=== PATIENT | male | born 1965 | race American Indian/Alaskan Native ===

== ENCOUNTER 2017-03-16 10:45 | Day surgery (SDC) | payer MEDICARE, OTHER ==
[2017-03-16 11:18] VITALS: BMI 33.0
[2017-03-16 11:29] LABS: BASO # 0.02 K/mm3 (0.0-2.0); BASO % 0.4 % (0.0-3.0); EOS # 0.2 (0.0-0.7); EOS % 3.7 % (1.5-5.0); GRAN # 3.45 (1.4-6.5); GRAN % 60.6 % (50.0-68.0); HEMOGLOBIN 12.9 g/dL (14.0-18.0); LYMPH # 1.6 (1.2-3.4); LYMPH % 27.6 % (22.0-35.0); MEAN CORPUSCULAR HEMOGLOBIN 27.6 pg (25.0-35.0); MEAN CORPUSCULAR HGB CONC 31.7 g/dl (31.0-37.0); MEAN PLATELET VOLUME 11.4 fl (7.0-11.0); MONO # 0.4 (0.1-0.6); MONO % 7.7 % (1.0-6.0); RBC 4.68 10^6/uL (3.5-6.1); RED CELL DISTRIBUTION WIDTH 15.8 % (11.5-14.5); WHITE BLOOD COUNT 5.7 10^3/ul (4.5-11.0)
[2017-03-16 11:41] LABS: INR 1.05 (0.93-1.08); PARTIAL THROMBOPLASTIN TIME 31.1 Seconds (25.1-36.5); PROTHROMBIN TIME 12.2 SECONDS (9.4-12.5)
[2017-03-16 11:56] LABS: CALCIUM 10.8 mg/dL (8.4-10.5)
[2017-03-16] MEDS ORDERED: Midazolam 2 MG/2 ML VIAL ONE ×2 (12:51→14:16)
[2017-03-16] MEDS ORDERED: Lidocaine 2% Inj (20ml) ONE (12:51)
[2017-03-16] MEDS ORDERED: Nitroglycerin 50mg in D5W 0 MG/0 ML BOTTLE IV ONE (12:52)
[2017-03-16] MEDS ORDERED: HEPARIN SODIUM/NS 1,000 ML IV ONE (12:53)
[2017-03-16] MEDS ORDERED: Iodixanol 320 mg/ml 150 ml Bottle IV ONE (13:15)
[2017-03-16 15:34] VITALS: O2SAT 98
[2017-03-16] MEDS ORDERED: Oxycodone/Acetaminophen 5/325 mg Tab PO PRN (17:28)
[2017-03-16 17:31] VITALS: BP 127/86; PULSE 64; RESP 18; TEMP 97.8
--- NOTE | 2017-03-17 19:21 | VASCULAR ---
PROCEDURE: 1. Left AV fistula angiogram 2. Perianastomotic venous angioplasty HISTORY: End-stage renal disease. Malfunctioning AV access PHYSICIAN(S): Robert Jhaveri MD. TECHNIQUE: The relative risks and indications of the procedure were explained to the patient and consent obtained. Preliminary sonography of the left wrist radial - was performed. This revealed multiple small veins providing drainage from the anastomosis. The patient was placed supine on the angiography table and the left arm prepped and draped in usual sterile fashion. Conscious sedation and monitoring provided throughout the procedure by a nurse. The right arm AV fistula was punctured near the wrist under ultrasound guidance in an antegrade direction with a micropuncture set. A 5 [place] catheter was placed. An overlapping left upper extremity AV fistula angiogram was performed. Central venous imaging was obtained. There was a 4 cm narrowing of the main outflow vein in the perianastomotic area. This was crossed with a 0.035 glidewire. A 6 [place] sheath was placed. The perianastomotic area was dilated with a 7 mm x 8 cm balloon. A focal residual stenosis was seen near the anastomosis. Post dilatation angiograms revealed a a improved appearance with brisk flow. Additional dilatation was not performed at this point. The sheath was removed and hemostasis obtained. The patient tolerated the procedure well. FINDINGS: The patient's left radial-cephalic fistula is patent. There are multiple veins in the forearm draining the anastomosis. The main vein near the perianastomotic area was dilated with 7 mm balloon. The fistula drains both to the cephalic and basilic system. The veins are patent in the upper arm. The central veins are widely patent. IMPRESSION: 1. Successful dilatation of 1 perianastomotic vein using a 7 mm balloon. 2. The patent central veins.
== END 2017-03-16 18:36 | disposition home or self-care (01) ==
LOC: SDS 10:45
PROVIDERS: ATTEND Radiology Vascular & Interventional Radiology
DX: T82.590A Other mechanical complication of surgically created arteriovenous fistula, initial encounter (principal); I12.0 Hypertensive chronic kidney disease with stage 5 chronic kidney disease or end stage renal disease; N18.6 End stage renal disease; Z99.2 Dependence on renal dialysis; Y83.2 Surgical operation with anastomosis, bypass or graft as the cause of abnormal reaction of the patient, or of later complication, without mention of misadventure at the time of the procedure
CPT/HCPCS: 36415; 36902; 80048; 85025; 85610; 85730; 99152; 99153; C1725; C1760; C1769; C1894; J1644; J2250; J2405; J3010

== ENCOUNTER 2018-07-03 08:19 | Outpatient (CLI) | payer MEDICARE | END 2018-07-03 08:20 | disposition home or self-care (01) | LOC: RAD 08:19 ==